=== PATIENT | female | born 1965 | race Caucasian/White ===

== ENCOUNTER 2019-07-22 16:45 | Emergency (ER) | payer MEDICAID ==
[~2019-07-22] VITALS: Ht 157.5 cm; Wt 90.7 kg
[2019-07-22 16:52] VITALS: Ht 157.5 cm; Wt 90.7 kg
[2019-07-22 18:02] LABS: BASOPHIL % 0.1 % (0-2); PLATELET COUNT 266 x10^3mcL (130-400)
[2019-07-22 18:04] LABS: RED CELL DISTRIBUTION WIDTH 16.3 % (11.5-14.5)
[2019-07-22 18:05] LABS: CALCIUM 8.7 mg/dL (8.5-10.1); CARBON DIOXIDE 26.8 mmol/L (21-32); CHLORIDE SERUM 99 mmol/L (98-107); CREATININE SERUM 0.8 mg/dL (0.6-1.0); GFR1 > 60 mL/min; GLUCOSE SERUM 108 mg/dL (74-106); POTASSIUM SERUM 3.3 mmol/L (3.5-5.1); SODIUM SERUM 137 mmol/L (136-145)
[2019-07-22 18:10] LABS: ALKALINE PHOSPHATASE 93 U/L (46-116); ALT/SGPT 14 U/L (14-59); AST/SGOT 15 U/L (15-37); BILIRUBIN TOTAL 0.7 mg/dL (0.20-1.00)
[2019-07-22 18:11] LABS: ALBUMIN 3.1 g/dL (3.4-5.0)
[2019-07-22 20:46] LABS: UA SPECIFIC GRAVITY <=1.005 (1.005-1.035); microscopic required? YES; urine erythrocyte NEGATIVE (NEGATIVE)
[2019-07-22 22:31] VITALS: BP 132/70
== END 2019-07-22 22:31 | disposition home or self-care (01) ==
LOC: ED 16:45
PROVIDERS: Emergency Medicine
DX: N30.90 Cystitis, unspecified without hematuria (principal); M06.9 Rheumatoid arthritis, unspecified; I10 Essential (primary) hypertension; Z88.8 Allergy status to other drugs, medicaments and biological substances
CPT/HCPCS: 87804; J0696; J1885; J7030; J7060; Q0092

== ENCOUNTER 2019-08-07 14:06 | Emergency (ER) | payer MEDICAID ==
[~2019-08-07] VITALS: Ht 157.5 cm; Wt 69.4 kg
[2019-08-07 14:15] VITALS: Ht 157.5 cm; Wt 69.4 kg
[2019-08-07 15:21] LABS: BASOPHIL % 0.2 % (0-2); PLATELET COUNT 338 x10^3mcL (130-400)
[2019-08-07 15:36] LABS: CALCIUM 8.8 mg/dL (8.5-10.1); CARBON DIOXIDE 25.1 mmol/L (21-32); CREATININE SERUM 1.4 mg/dL (0.6-1.0); POTASSIUM SERUM 3.9 mmol/L (3.5-5.1)
[2019-08-07 15:41] LABS: BILIRUBIN TOTAL 0.4 mg/dL (0.20-1.00)
[2019-08-07 15:44] LABS: ALBUMIN 3.3 g/dL (3.4-5.0); TOTAL PROTEIN, SERUM 9.1 g/dL (6.4-8.2)
[2019-08-07 16:25] LABS: UA SPECIFIC GRAVITY 1.025 (1.005-1.035); microscopic required? YES; urine erythrocyte NEGATIVE (NEGATIVE)
[2019-08-07 18:37] VITALS: BP 133/73
== END 2019-08-07 18:37 | disposition home or self-care (01) ==
LOC: ED 14:06
DX: N39.0 Urinary tract infection, site not specified (principal); I10 Essential (primary) hypertension; E11.9 Type 2 diabetes mellitus without complications; F32.9 Major depressive disorder, single episode, unspecified; M06.9 Rheumatoid arthritis, unspecified; Z88.6 Allergy status to analgesic agent
CPT/HCPCS: 87804; J1885; J7030; Q0092; Q0162

== ENCOUNTER 2019-08-11 12:30 | Inpatient (IN) | payer MEDICAID ==
[~2019-08-11] VITALS: Ht 157.5 cm; Wt 66.0 kg
[2019-08-11 12:32] VITALS: Ht 157.5 cm; Wt 66.0 kg
--- NOTE | 2019-08-11 12:37 | NUR ---
PT WAS B/B AMBULANCE FROM HOME. PT TOOK KFLEX AND NAPROXY THEN GOT N/V X 2. PT WAS A/OX4. VS WAS STABLE.
--- NOTE | 2019-08-11 13:11 | NUR ---
PT WAS MEDICATED WITH HALDOL AND PEPCID IVP PER MD RDER.
[2019-08-11 13:22] LABS: CALCIUM 8.6 mg/dL (8.5-10.1); CHLORIDE SERUM 102 mmol/L (98-107); CREATININE SERUM 0.8 mg/dL (0.6-1.0); GFR1 > 60 mL/min; GLUCOSE SERUM 115 mg/dL (74-106); POTASSIUM SERUM 3.1 mmol/L (3.5-5.1); SODIUM SERUM 140 mmol/L (136-145)
[2019-08-11 13:25] LABS: ALKALINE PHOSPHATASE 148 U/L (46-116); ALT/SGPT 61 U/L (14-59); AST/SGOT 115 U/L (15-37); BILIRUBIN TOTAL 0.38 mg/dL (0.20-1.00); LIPASE 189 IU/L (73-393)
[2019-08-11 13:26] LABS: ALBUMIN 3.2 g/dL (3.4-5.0); TOTAL PROTEIN, SERUM 8.7 g/dL (6.4-8.2)
--- NOTE | 2019-08-11 13:57 | NUR ---
PT RESTING IN BED ON RT SIDE WITH NO SIGNS OF DISTRESS.
[2019-08-11 14:00] LABS: PLATELET COUNT 185 x10^3mcL (130-400)
[2019-08-11 14:01] LABS: BAND NEUTROPHIL 15 % (0-10); SEGMENTED NEUTROPHILS 78 % (37-75)
[2019-08-11 14:02] LABS: ATYPICAL LYMPH 1 %; BASOPHIL 0 % (0-2); MONOCYTE 2 % (0-7); rbc morphology (normal/abnorm) ABNORMAL (NORMAL)
[2019-08-11 14:03] LABS: ovalocyte/elliptocyte 1+
--- NOTE | 2019-08-11 14:19 | NUR ---
PT WAS SENT TO LAB. URINE SAMPLE WAS COLLECTED AND SENT TO LAB.
[2019-08-11 14:42] LABS: microscopic required? YES; urine erythrocyte 1+ (NEGATIVE)
--- NOTE | 2019-08-11 14:47 | NUR ---
ROCEPHIN IVPB STARTED PER MD ORDER. US TECH IS BEDSIDE TO DO US OF KARINA.
[2019-08-11 16:01] LABS: CHOLESTEROL/HDL RATIO 6.1
[2019-08-11] MEDS ORDERED: KEFLEX500 M1 PO (16:11)
[2019-08-11] MEDS ORDERED: NAPROSYN500 MG PO (16:12)
--- NOTE | 2019-08-11 16:12 | NUR ---
PT WAS ADMITED TO TELE, ROOM 256B. REPORT WAS CALLED AND GIVEN TO SYLVIA DOSHI.
[2019-08-11 16:39] VITALS: BP 161/87
--- NOTE | 2019-08-11 16:47 | NUR ---
RECEIVED PT FROM ER, PT ADMIT FOR ACUTE CHOLECYSTITIS, PT IS A/O X4, VERBAL RESPONSIVE. LUNG SOUND CLEAR BILATERAL, NO COUGH, NO SOB. PT DENY ANY CHEST PAIN OR DISCOMFORT. BOWEL SOUND PRESENT ALL 4 QUADRANTS, NO DISTENTION, PT C/O ABD PAIN 4/10 AT THIS MOMENT. PEDAL PULSE PRESENT BOTH FEET, NO EDEMA, IV AT LEFT AC, NO LEAKING, NO INFILTRATION. ALL ADLS ASSIST, ALL NEED MET, CALL LIGHT IN REACH, WILL CONTINUE TO MONITOR.
--- NOTE | 2019-08-11 18:07 | NUR ---
AAO TIMES 4. MED SURG PATIENT. LUNGS CTA. NO SOB. NO C/O PAIN. NPO. IV SITE LAC PATENT, CDI. AMBULATORY, BRP SELF. COOPERATIVE.
--- NOTE | 2019-08-11 19:39 | NUR ---
RECEIVED PT IN BED AAO X4 VERBAL LITHUANIAN SPEAKING DENIES PAIN NO DISTRESS LUNGS CTA ABD SOFT NON TENDER BS ACTIVE, NO NAUSEA / VOMITING NPO, AWAITING FOR DR DISLA FOR CONSULT, IVF NS 100CC, INFUSING @ LAC, APPLIED SCD'S FOR DVT PROPHYLAXIS, SHIFT ASSESSMENT DONE, ATTENDED NEEDS, CALL LIGHT AT REACH CONT TO MONITOR.
[2019-08-11 20:30] VITALS: BP 163/88
--- NOTE | 2019-08-11 22:00 | NUR ---
BP 163/82 ASYMTOMATIC, PT JUST AMBULATES TO THE BATHROOM, WILL CONT TO MONITOR. AWARE.
--- NOTE | 2019-08-11 22:18 | NUR ---
SEEN BY DR DISLA, SURGEON FOR CONSULT, SCHED FOR SURGERY IN AM.
--- NOTE | 2019-08-12 03:33 | NUR ---
PT ASLEEP AROUSABLE TO TACTILE STIMULUS, NO DISTRESS, NO S/SX OF PAIN OR DISCOMFORTS, REMAINED NPO, SCHED SURG IN AM, CONT TO MONITOR.
[2019-08-12 05:24] VITALS: BP 150/87
--- NOTE | 2019-08-12 06:12 | NUR ---
DR DISLA EXPLAINED TO THE PATIENT PLANNED PROCEDURE, RECEPTIVE TO ALL INFO GIVEN, PT SIGNED CONSENT, CHECKLIST COMPLETED, CHLORHEXEDINE WIPES INITIATED, REMAINED NPO, REINFORCED PRE-OP INSTRUCTION, PT DENIES ANY OR DISCOMFORTS, CONT TO MONITOR.
--- NOTE | 2019-08-12 07:15 | NUR ---
RECIEVED PT RESTING IN BED WITH NO DISTRESS NOTED. A/O X4 WITH NO REDD OR DIZZINESS. LUNGS CTAB. NS RUNNING 100 ML/HR IN LAC, INTACT AND PATENT WITH NO REDNESS OR INFLAMMATION. PT SCHEDULED FOR MORRO LAP THIS MORNING. ALL PRE-OP PREP DONE AND CONSNTS SIGNED. SAFETY PRECAUTIONS IN PLACE, CALL LIGHT WITHIN REACH, WILL MONITOR.
[2019-08-12 07:55] LABS: BASOPHIL % 0.3 % (0-2); PLATELET COUNT 165 x10^3mcL (130-400)
[2019-08-12 07:57] LABS: MAGNESIUM 1.7 mg/dL (1.8-2.4); PHOSPHOROUS 3.3 mg/dL (2.5-4.9)
[2019-08-12 08:00] LABS: RED CELL DISTRIBUTION WIDTH 16.9 % (11.5-14.5)
--- NOTE | 2019-08-12 08:00 | NUR ---
PT TAKEN DOWN FOR PROCEDURE.
[2019-08-12 08:08] LABS: ALKALINE PHOSPHATASE 107 U/L (46-116); ALT/SGPT 84 U/L (14-59); AST/SGOT 101 U/L (15-37); BILIRUBIN TOTAL 0.3 mg/dL (0.20-1.00); CALCIUM 8.1 mg/dL (8.5-10.1); CARBON DIOXIDE 24.3 mmol/L (21-32); CHLORIDE SERUM 112 mmol/L (98-107); CREATININE SERUM 0.7 mg/dL (0.6-1.0); GFR1 > 60 mL/min; GLUCOSE SERUM 79 mg/dL (74-106); POTASSIUM SERUM 4.2 mmol/L (3.5-5.1); SODIUM SERUM 145 mmol/L (136-145)
[2019-08-12 08:10] LABS: ALBUMIN 2.4 g/dL (3.4-5.0)
--- NOTE | 2019-08-12 10:25 | NUR ---
PT STILL IN SURGERY.
--- NOTE | 2019-08-12 11:32 | NUR ---
PT BACK FROM SURGERY WITH NO C/O PAIN OR DISTRESS. VS: BP 150/79, HR 69, MAP 98, RR 18, TEMP 98.5, O2 98% ON RA. PT RECIEVED LAP MORRO WITH CHOLEANGIOGRAM. 3 INCISION SITES AND 1 AMAURY DRAIN TO ABD AREA. BANDAIDS AND DRESSING CDI. SAFETY PRECAUTIONS IN PLACE, CALL LIGHT WITHIN REACH, WILL MONITOR.
--- NOTE | 2019-08-12 13:02 | NUR ---
ZOFRAN GIVEN PER EMAR FOR C/O N/V, WILL REASSESS.
[2019-08-12 17:33] VITALS: BP 149/84
--- NOTE | 2019-08-12 18:40 | NUR ---
PT STABLE WTIH NO C/O PAIN OR DISTRESS. A/O X4 WITH NO REDD OR DIZZINESS. NS RUNNING AT 100ML/HR IN LAC, INTACT AND PATENT WITH NO REDNESS OR INFLAMMATION. AMAURY OUTPUT OF 40CC. ABD DRESSING CDI. SAFETY PRECAUTIONS IN PLACE, CALL LIGHT WITHIN REACH, WILL ENDORSE CARE TO NIGHT NURSE.
--- NOTE | 2019-08-12 20:17 | NUR ---
SHIFT REASSESSMENT DONE.PATIENT ALERT AND OREINTED.NOT IN RESP DISTRESS.MAINLY ICELANDIC,NEEDS ANTICIPATED.GEN WEAKNESS,AMBULATORY/NS ORDERED INFUSING.MEDSURG PATIENT.4 BANDAIDS,1 AMAURY WITH SEROUS DRAINAGE.VOIDING.CALL LIGHT IN REACH.
[2019-08-12 20:28] VITALS: BP 156/80
--- NOTE | 2019-08-12 21:53 | NUR ---
ALL PM MEDS GIVEN.SWALLOWS WELL.IVF INFUSING WELL.AMAURY INTACT.
--- NOTE | 2019-08-13 00:33 | NUR ---
ASSISTED TO RESTROOM,VOIDING QS.
[2019-08-13 06:10] VITALS: BP 153/86
[2019-08-13 06:23] LABS: BASOPHIL % 0.2 % (0-2); PLATELET COUNT 164 x10^3mcL (130-400)
[2019-08-13 06:41] LABS: CALCIUM 8.5 mg/dL (8.5-10.1); CARBON DIOXIDE 24.4 mmol/L (21-32); CHLORIDE SERUM 107 mmol/L (98-107); CREATININE SERUM 0.6 mg/dL (0.6-1.0); GFR1 > 60 mL/min; GLUCOSE SERUM 92 mg/dL (74-106); MAGNESIUM 1.7 mg/dL (1.8-2.4); PHOSPHOROUS 3.1 mg/dL (2.5-4.9); POTASSIUM SERUM 3.9 mmol/L (3.5-5.1); RED CELL DISTRIBUTION WIDTH 16.9 % (11.5-14.5); SODIUM SERUM 141 mmol/L (136-145)
--- NOTE | 2019-08-13 06:59 | NUR ---
PATIENT AM MED OR BLOOD SUGAR TAKEN AND RECORDED.NS AT 100 CC/ HOUR.IV SITE GOOD.WILL ENDORSE TO NEXT SHIFT.
--- NOTE | 2019-08-13 07:20 | NUR ---
RECEIVED PT FROM SARAN RN. PT AA/OX4. LAYING IN BED. SPEAKS DANISH. NO S/S OF ACUTE DISTRESS. NO C/O PAIN AT THIS TIME. NO SOB ON ROOM AIR. NO CHEST PAIN. MED SURG. ABD. INCISIONS COVERED BY BANDAIDS. CDI. AMAURY DRAIN TO RIGHT ABD. IN TACT DRAINING SEROSANGUINOUS DRAINAGE. IV WNL TO LAC, PATENT AND FLUSHES WELL. IVF FLOWING. PT CALM/COOPERATIVE. INSTRUCTED TO USE CALL LIGHT TO CALL FOR ASSISTANCE PRN. VERBALIZED UNDERSTANDING WILL CONT. TO MONITOR.
[2019-08-13 07:22] VITALS: BP 165/53
--- NOTE | 2019-08-13 12:00 | NUR ---
PT AA/OX4 LAYING IN BED. DENIES ABD. PAIN. NO N/V. NO SOB ON ROOM AIR. NO CHEST PAIN. CALM/COOPERATIVE. AMAURY DRAIN IN TACT DRAINING SEROSANGUINOUS DRAINAGE. BED IN LOW POSITION. CALL LIGHT WITHIN REACH. WILL CONT. TO MONITOR.
--- NOTE | 2019-08-13 13:41 | NUR ---
Discount pharmacy card and list to low cost medical clinics given to patient by Michael Hernandez.
--- NOTE | 2019-08-13 14:01 | NUR ---
AMAURY DRAIN OUTPUT 40CC SEROSANGUINOUS. PER DR. DISLA ORDER AMAURY DRAIN REMOVED. PT TOLERATED PROCEDURE WELL. NO C/O PAIN. NO N/V. SITE WNL. NO REDNESS, NO SWELLING. SKIN COLOR NORMAL FOR ETHNICITY. PT CALM/COOPERATIVE. DENIES ABD. PAIN. AA/OX4. BED IN LOW POSITION. CALL LIGHT WITHIN REACH. WILL CONT. TO MONITOR.
[2019-08-13 15:11] VITALS: BP 173/80
[2019-08-13 16:09] VITALS: BP 153/88
--- NOTE | 2019-08-13 16:12 | NUR ---
PT BEING DISCHARGED TO HOME. AWAKE, ALERT, ORIENTED X4. NO S/S OF ACUTE DISTRESS. NO SOB ON ROOM AIR. NO ABD. PAIN. NO N/V. PASSING GAS. HAD BM X1 TODAY. SOFT/BROWN/SMALL. VOIDS FREELY. ABD. INCISIONS X4 YESICA IN TACT. NO DRAINAGE NOTED. SEE CHART FOR PICTURES. BANDAIDS CDI. NO N/V. TOLERATING DIET WELL. DISCHARGE EDUCATION PROVIDED TO PATIENT. INSTRUCTED TO FOLLOW UP WITH DR. DISLA IN ONE WEEK. PT VERBALIZED UNDERSTANDING. PRESCRIPTION FOR GLUOSE MONITORING SUPPLIES GIVEN TO PATIENT. IV REMOVED FROM LAC, CATHETER IN TACT. PRESSURE APPLIED. SITE WNL. MED SURG. BELONGINGS WITH PATIENT. BP STABLE. VS STABLE. WAITING FOR RIDE HOME.
--- NOTE | 2019-08-13 16:38 | NUR ---
TAKEN TO D/C LOBBY BY [facility]. TAKEN BY WHEELCHAIR. BELONGINGS W/ PT. ACCOMPANIED BY FAMILY.
== END 2019-08-13 18:13 | disposition home or self-care (01) | DRG 710 ==
LOC: ED 12:30 → MU 15:34
PROVIDERS: Emergency Medicine; Surgery; ADMIT General Practice
PROC: BF10YZZ Fluoroscopy of Bile Ducts using Other Contrast (ICD-10-PCS; 2019-08-12)
PROC: 0FT44ZZ Resection of Gallbladder, Percutaneous Endoscopic Approach (ICD-10-PCS; principal; 2019-08-12 08:00)
DX: A41.9 Sepsis, unspecified organism (principal); E44.0 Moderate protein-calorie malnutrition; K80.00 Calculus of gallbladder with acute cholecystitis without obstruction; E87.6 Hypokalemia; M06.9 Rheumatoid arthritis, unspecified; F32.9 Major depressive disorder, single episode, unspecified; I10 Essential (primary) hypertension; E78.1 Pure hyperglyceridemia; R74.0 Nonspecific elevation of levels of transaminase and lactic acid dehydrogenase [LDH]; D64.9 Anemia, unspecified; Z68.27 Body mass index [BMI] 27.0-27.9, adult
CPT/HCPCS: 82962; 90658; C1887; G0378; J0330; J0694; J0696; J1170; J1630; J2405; J2704; J2710; J3010; J3490; J7030; J7060; J7120; Q0092; Q9967

== ENCOUNTER 2019-09-01 12:19 | Inpatient (IN) | payer MEDICAID ==
[~2019-09-01] VITALS: Ht 157.5 cm; Wt 65.8 kg
[~2019-09-01 12:19] MED LIST: KEFLEX500 M1 PO; NAPROSYN500 MG PO
--- NOTE | 2019-09-01 12:31 | NUR ---
TP BIBA FROM HOME DUE TO GENERALIZED BODY ACHES AND RA. PT STS THAT SHE HAS HAD NAUSE WITH NO VOMITING. PT STS THAT SHE HAS "HUNGER PAINS" BUT NO ABDOMINAL PAIN. PT DENIES ANY DYSURIA AT THIS TIME. PT DENIES CHEST PAIN AT THIS TIME. PT STS THAT SHE HAS DIZZINESS WITH NO BLURRY VISION. PT STS THAT SHE HAS A HX OF RA AND INCREASES HER "ALL OVER BODY PAIN". PT PLACED ON CM. VSS. RESP E/U. WILL CONTINUE TO MONITOR.
--- NOTE | 2019-09-01 12:40 | NUR ---
JOSE HAND SWELLING PER PT FROM RA, PT HAS JOSE KNEE SWELLING. PER PT DENIES ANY FALL OR RECENT TRAUMA. DR. BAIRD MADE AWARE.
[2019-09-01 13:25] LABS: BASOPHIL % 0.3 % (0-2)
[2019-09-01 13:26] LABS: PLATELET COUNT 402 x10^3mcL (130-400); RED CELL DISTRIBUTION WIDTH 17.7 % (11.5-14.5)
[2019-09-01] MEDS ORDERED: PREDNISONE1 MG (13:30)
[2019-09-01 13:50] LABS: CALCIUM 8.7 mg/dL (8.5-10.1); CHLORIDE SERUM 102 mmol/L (98-107); CREATININE SERUM 0.9 mg/dL (0.6-1.0); GFR1 > 60 mL/min; GLUCOSE SERUM 101 mg/dL (74-106); POTASSIUM SERUM 3.5 mmol/L (3.5-5.1); SODIUM SERUM 138 mmol/L (136-145)
[2019-09-01 13:55] LABS: ALBUMIN 3.4 g/dL (3.4-5.0); ALKALINE PHOSPHATASE 123 U/L (46-116); ALT/SGPT 34 U/L (14-59); AST/SGOT 41 U/L (15-37); BILIRUBIN TOTAL 0.37 mg/dL (0.20-1.00); C REACTIVE PROTEIN 9.3 mg/dL (<=0.9); T4(THYROXINE) 8.6 ug/dL (4.7-13.3)
[2019-09-01 14:07] LABS: TOTAL PROTEIN, SERUM 8.9 g/dL (6.4-8.2)
[2019-09-01 14:12] LABS: microscopic required? YES; urine erythrocyte NEGATIVE (NEGATIVE)
--- NOTE | 2019-09-01 14:32 | NUR ---
PT STS THAT SHE IS A 5/10 PAIN AT THIS TIME, BUT FEELS "MUCH BETTER". VSS, RESP E/U. WILL CONTINUE TO MONITOTR.
[2019-09-01 14:33] LABS: AMPHETAMINE QUAL UR NONE DETECTED (See below)
[2019-09-01 14:41] LABS: CHOLESTEROL/HDL RATIO 4.4; MAGNESIUM 1.6 mg/dL (1.8-2.4); PHOSPHOROUS 3.4 mg/dL (2.5-4.9)
--- NOTE | 2019-09-01 15:02 | NUR ---
REPORT GIVEN TO IVANIA DOSHI TO ASSUME CARE OF PT.
--- NOTE | 2019-09-01 15:02 | NUR ---
Total fluid resuscitation amount ordered for patient is 1000 mls. At time of admission/transfer to [facility] , 1000 mls have infused. Last BP was 152/83 and GLENDA REDD is aware that BP will need to be reassessed after fluid infusion completed.
[2019-09-01 15:22] LABS: ERYTHROCYTE SED RATE > 120 mm/hr (0-30)
--- NOTE | 2019-09-01 15:35 | NUR ---
PT WAS RECEIVED BY PRIMARY NURSE TORRES AT 1535H FROM ED [facility]. PT SEEN LYING IN BED, AAOX4. DENIES HEADACHE/DIZZINESS. ABLE TO FOLLOW COMMANDS. NO SOB NOTED, LUNG SOUNDS CTA. DENIES CHEST PAIN/PRESSURE. DENIES ABDOMINAL DISCOMFORT. LAST BM TODAY, FORMED. VOIDS. STATED THAT SHE HAS 7/10 GENERALIZED BODY PAIN, ABLE TO MOVE ALL EXTREMITIES. W/ SWELLING ON THE HANDS AND KNEES. SIDE RAILS UPX2. CALL LIGHT ON REACH. HOB ELEVATED AT 30 DEG. PRIMARY NURSE TORRES AT BEDSIDE FOR CONTINUITY OF CARE
[2019-09-01 15:42] VITALS: BP 186/94
[2019-09-01 15:50] VITALS: Ht 157.5 cm; Wt 65.8 kg
--- NOTE | 2019-09-01 16:14 | NUR ---
DR. CARRASQUILLO AWARE OF MAG 1.6 AND BP 186/94. NO NEW ORDERS. WILL CONTINUE TO MONITOR.
--- NOTE | 2019-09-01 18:38 | NUR ---
PT RESTING IN BED. AAOX4. RESP EVEN AND UNLABORED ON RA. C/O MILD GENERAL BODY AND JOINT PAIN BUT TOLERABLE. IVF INFUSING, NO REDNESS OR SWELLING TO IV SITE. HOB ELEVATED. FALL PRECAUTIONS. BED IN LOW POSITION, CALL LIGHT WITHIN REACH. WILL ENDORSE TO ONCOMING SHIFT.
--- NOTE | 2019-09-01 19:51 | NUR ---
RECEIVED PT FROM PREVIOUS SHIFT. PT A/OX4. DENIES PAIN. DENIES SOB ON RA. IV PATENT AND INFUSING NS TO R WRIST AT 80ML/HR WITH NO S/S OF INFILTRATION. CALL LIGHT WITHIN REACH, BED IN LOW POSITION. WILL CONTINUE TO MONITOR.
[2019-09-01 20:21] VITALS: BP 151/79
[2019-09-02 05:16] VITALS: BP 147/77
[2019-09-02 06:24] LABS: PLATELET COUNT 360 x10^3mcL (130-400)
[2019-09-02 06:56] LABS: CALCIUM 8.9 mg/dL (8.5-10.1); CARBON DIOXIDE 24.6 mmol/L (21-32); CHLORIDE SERUM 106 mmol/L (98-107); CREATININE SERUM 0.7 mg/dL (0.6-1.0); GFR1 > 60 mL/min; GLUCOSE SERUM 154 mg/dL (74-106); MAGNESIUM 1.9 mg/dL (1.8-2.4); PHOSPHOROUS 3.4 mg/dL (2.5-4.9); POTASSIUM SERUM 3.9 mmol/L (3.5-5.1); SODIUM SERUM 143 mmol/L (136-145)
[2019-09-02 07:03] LABS: RED CELL DISTRIBUTION WIDTH 17.3 % (11.5-14.5)
[2019-09-02 07:04] LABS: BASOPHIL % 0 % (0-2)
--- NOTE | 2019-09-02 07:22 | NUR ---
RECEIVED PT RESTING IN BED. SLEEPING BUT EASILY AROUSABLE. BREATHING EVEN AND UNLABORED ON RA. NO PAIN NOTED. HOB SLIGHTLY ELEVATED. IVF INFUSING, NO REDNESS OR SWELLING NOTED. FALL PRECAUTIONS. BED IN LOW POSITION, CALL LIGHT WITHIN REACH. WILL CONTINUE TO MONITOR.
[2019-09-02 08:34] VITALS: BP 154/80
[2019-09-02 10:52] VITALS: BP 134/62
[2019-09-02] MEDS ORDERED: IBUPROFEN400 MG PO (11:34)
[2019-09-02] MEDS ORDERED: METHOTREXATE2.5 M2 PO (11:35)
[2019-09-02] MEDS ORDERED: PREDNISONE20 MG PO (11:38)
--- NOTE | 2019-09-02 12:09 | NUR ---
PT RESTING IN BED. NO ACUTE DISTRESS. AAOX4. RESP EVEN AND UNLABORED ON RA. C/O MILD JOINT PAIN BUT TOLERABLE. IVF INFUSING, NO REDNESS OR SWELLING. FAMILY AT BEDSIDE. CALL LIGHT WITHIN REACH. WILL CONTINUE TO MONITOR.
[2019-09-02 12:10] VITALS: BP 164/83
[2019-09-02 13:23] VITALS: BP 134/62
--- NOTE | 2019-09-02 15:09 | NUR ---
PT DISCHARGED TO HOME IN NO ACUTE DISTRESS. AWAKE, ALERT, AND ORIENTED. VSS. RX GIVEN. DISCHARGE EDUCATION PROVIDED BY VIVIANA DOSHI, PT VERBALIZED UNDERSTANDING. INSTRUCTED PT TO FOLLOW UP WITH PCP. IV DC'D WITH CATHETER INTACT. BELONGINGS WITH PT. TRANSPORTED VIA WHEELCHAIR. ABAD GASCA ACCOMPANIED PT TO LOBBY.
== END 2019-09-02 15:10 | disposition home or self-care (01) | DRG 346 ==
LOC: ED 12:19 → MU 14:19
PROVIDERS: Emergency Medicine; ADMIT Internal Medicine
DX: M06.9 Rheumatoid arthritis, unspecified (principal); E87.2 Acidosis; E83.42 Hypomagnesemia; T45.1X6A Underdosing of antineoplastic and immunosuppressive drugs, initial encounter; T38.0X6A Underdosing of glucocorticoids and synthetic analogues, initial encounter; I10 Essential (primary) hypertension; Z68.26 Body mass index [BMI] 26.0-26.9, adult; Z91.14 Patient's other noncompliance with medication regimen; Z91.120 Patient's intentional underdosing of medication regimen due to financial hardship; Y92.009 Unspecified place in unspecified non-institutional (private) residence as the place of occurrence of the external cause
CPT/HCPCS: 82962; 86431; 87804; G0378; J1885; J2270; J2405; J2920; J2930; J7030; J8610

== ENCOUNTER 2019-10-06 10:00 | Emergency (ER) | payer SELFPAY ==
[~2019-10-06] VITALS: Ht 162.6 cm; Wt 65.8 kg
[~2019-10-06 10:00] MED LIST changes: +IBUPROFEN400 MG PO; +METHOTREXATE2.5 M2 PO; +PREDNISONE1 MG; +PREDNISONE20 MG PO
[2019-10-06 10:06] VITALS: Ht 162.6 cm; Wt 65.8 kg
[2019-10-06 11:33] LABS: BASOPHIL % 0.4 % (0-2); CHLORIDE SERUM 104 mmol/L (98-107); PLATELET COUNT 369 x10^3mcL (130-400); POTASSIUM SERUM 3.6 mmol/L (3.5-5.1); RED CELL DISTRIBUTION WIDTH 18.8 % (11.5-14.5); SODIUM SERUM 139 mmol/L (136-145)
[2019-10-06 11:34] LABS: AST/SGOT 20 U/L (15-37); BILIRUBIN TOTAL 0.4 mg/dL (0.20-1.00); CARBON DIOXIDE 25.9 mmol/L (21-32); CREATININE SERUM 0.7 mg/dL (0.6-1.0); GFR1 > 60 mL/min; GLUCOSE SERUM 102 mg/dL (74-106); TOTAL PROTEIN, SERUM 8.8 g/dL (6.4-8.2)
[2019-10-06 11:35] LABS: ALKALINE PHOSPHATASE 92 U/L (46-116); ALT/SGPT 26 U/L (14-59); CHOLESTEROL 170 mg/dL (<200); HDL CHOLESTEROL 44 mg/dL (40-60); LIPASE 100 IU/L (73-393)
[2019-10-06 14:39] VITALS: BP 142/84
== END 2019-10-06 14:35 | disposition home or self-care (01) ==
LOC: ED 10:00
PROVIDERS: Emergency Medicine
DX: M13.0 Polyarthritis, unspecified (principal); I10 Essential (primary) hypertension; E11.9 Type 2 diabetes mellitus without complications; Z88.6 Allergy status to analgesic agent
CPT/HCPCS: J2405; J2930; J3010; J7030; J7512; Q0092

== ENCOUNTER 2019-11-13 08:31 | Emergency (ER) | payer MEDICAID ==
[~2019-11-13] VITALS: Ht 157.5 cm; Wt 66.2 kg
[2019-11-13 08:42] VITALS: Ht 157.5 cm; Wt 66.2 kg
[2019-11-13 13:10] VITALS: BP 152/89
== END 2019-11-13 13:10 | disposition home or self-care (01) ==
LOC: ED 08:31
DX: J10.1 Influenza due to other identified influenza virus with other respiratory manifestations (principal); J45.901 Unspecified asthma with (acute) exacerbation; I10 Essential (primary) hypertension; E11.9 Type 2 diabetes mellitus without complications; M19.90 Unspecified osteoarthritis, unspecified site; J02.9 Acute pharyngitis, unspecified; Z88.6 Allergy status to analgesic agent
CPT/HCPCS: 87804; J1885; J2930; J3010